=== PATIENT | male | born 1985 | race Caucasian/White ===

== ENCOUNTER 2019-02-08 08:08 | Emergency (ER) | payer BC, OTHER ==
[~2019-02-08] VITALS: Ht 177.8 cm; Wt 74.8 kg
[2019-02-08] MEDS ORDERED: LIDOCAINE 1% PF 2 ML VIAL. INJ ONE (08:30)
[2019-02-08] MEDS ORDERED: ACETAMINOPHEN 500 MG TABLET PO ONE (08:30)
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
[2019-02-08] MEDS ORDERED: DIPHTH,PERTUSS(ACELL),TET TOX 0.5 ML DISP.SYRIN. VAX IM ONE (09:15)
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
[2019-02-08 09:30] VITALS: BP 131/84
[2019-02-08] MEDS ORDERED: IBUP-1060 PO (10:15)
[2019-02-08] MEDS ORDERED: CEPH-264 PO (10:15)
== END 2019-02-08 10:43 | disposition home or self-care (01) ==
LOC: ER 08:08
DX: S01.21XA Laceration without foreign body of nose, initial encounter (principal); M54.2 Cervicalgia; F17.200 Nicotine dependence, unspecified, uncomplicated; V86.96XA Unspecified occupant of dirt bike or motor/cross bike injured in nontraffic accident, initial encounter; Y93.89 Activity, other specified; Y92.410 Unspecified street and highway as the place of occurrence of the external cause; Y99.8 Other external cause status
CPT/HCPCS: 12011; 70450; 72125; 90471; 90715; 99284-25